=== PATIENT | female | born 1955 | race Caucasian/White ===

== ENCOUNTER 2018-12-20 15:18 | Emergency (ER) | payer OTHER ==
[~2018-12-20] VITALS: Ht 165.1 cm; Wt 90.0 kg
[~2018-12-20 15:18] MED LIST: AZIT250T PO; IBUP-1542 PO
[2018-12-20 15:25] VITALS: BP 165/87; PULSE 80; RESP 16; Ht 165.1 cm; Wt 90.0 kg
[2018-12-20] MEDS ORDERED: AZITHROMYCIN 500 MG TAB PO ONE (15:30)
[2018-12-20] MEDS ORDERED: IBUPROFEN 800 MG TAB PO ONE (15:30)
== END 2018-12-20 16:53 | disposition home or self-care (01) ==
LOC: FTE 15:18
DX: J40 Bronchitis, not specified as acute or chronic (principal); I10 Essential (primary) hypertension
CPT/HCPCS: 71045; 93005; Z7502; Z7610